=== PATIENT | female | born 1965 | race Two or more races ===

== ENCOUNTER 2024-05-01 07:26 | Outpatient (CLI) | payer OTHER | END 2024-05-01 07:32 | disposition home or self-care (01) | LOC: MAMO-SONO 07:26 | DX: Z12.31 Encounter for screening mammogram for malignant neoplasm of breast (principal); R92.30 Dense breasts, unspecified ==

== ENCOUNTER 2024-05-22 14:52 | Outpatient (CLI) | payer OTHER | END 2024-05-22 15:06 | disposition home or self-care (01) | LOC: RAD 14:52 | DX: G24.3 Spasmodic torticollis (principal); G54.0 Brachial plexus disorders; M54.2 Cervicalgia; M54.6 Pain in thoracic spine; M25.512 Pain in left shoulder; M25.511 Pain in right shoulder ==